=== PATIENT | female | born 1985 | race Caucasian/White ===

== ENCOUNTER 2021-01-18 22:20 | Emergency (ER) | payer OTHER ==
[~2021-01-18] VITALS: Ht 167.6 cm; Wt 79.5 kg
--- NOTE | 2021-01-18 22:38 | PHYS DOC ---
Past History Past Medical History: Anemia General Adult HPI: HPI: "..I ve been vomiting.. .. I think I just need some fluids and nausea meds.. " Patient is a 35 year old female who presents with above hx and complaints nausea, vomiting and 36 weeks . Pt. Gavid 4, Term 2, 1 Miscarry. Pt. has been taking vitamins. No recent travel. No history of trauma. No history of immunosuppression. No history of bad food intake. 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 No history of vaginal discharge or bleeding. Her primary care doctor for this is Amber Wilkinson. Review of Systems: Review of Systems: Constitutional: Denies fever or chills Eyes: Denies change in visual acuity HENT: Denies nasal congestion or sore throat Respiratory: Denies cough or shortness of breath Cardiovascular: Denies chest pain or edema GI: Complaints, nausea, vomiting,. Denies bloody stools or diarrhea : Denies dysuria Musculoskeletal: Denies back pain or joint pain Integument: Denies rash Neurologic: Denies headache, focal weakness or sensory changes Endocrine: Denies polyuria or polydipsia Lymphatic: Denies swollen glands Psychiatric: Denies depression or anxiety Family History: Family History: Noncontributory to presentation Current Medications: Current Meds: See nursing for home meds Allergies: Allergies: No known drug allergies Physical Exam: PE: Constitutional: Well developed, well nourished, moderate acute distress, non- toxic appearance. [] HENT: Normocephalic, atraumatic, bilateral external ears normal, oropharynx dry, no oral exudates, nose normal. [] Eyes: PERRLA, EOMI, conjunctiva normal, no discharge. [] Neck: Normal range of motion, no tenderness, supple, no stridor. [] Cardiovascular:Heart rate regular rhythm, no murmur []. The monitor shows a sinus rhythm Lungs & Thorax: Bilateral breath sounds equal apex on auscultation [] Abdomen: Bowel sounds decreased,, soft, no tenderness, no masses, no pulsatile masses. Gravid. heart rate 150s to 160s. Active movement. Pt. declines pelvic at this time. No vaginal bleeding or discharge reported) Skin: Warm, dry, no erythema, no rash. [] Back: No tenderness, no CVA tenderness. [] Extremities: No tenderness, no cyanosis, no clubbing, ROM intact, no edema. No cording appreciated Neurologic: Alert and oriented X 3, normal motor function, normal sensory function, no focal deficits noted. DTRs +2 Psychologic: Affect anxious , judgement normal, mood normal. [] EKG: EKG: [] Radiology/Procedures: Radiology/Procedures: [] Heart Score: C/O Chest Pain: N/A Risk Factors: Risk Factors: DM, Current or recent (<one month) smoker, HTN, HLP, family history of CAD, obesity. Risk Scores: Score 0 - 3: 2.5% MACE over next 6 weeks - Discharge Home Score 4 - 6: 20.3% MACE over next 6 weeks - Admit for Clinical Observation Score 7 - 10: 72.7% MACE over next 6 weeks - Early Invasive Strategies Course & Med Decision Making: Course & Med Decision Making Pertinent Labs and Imaging studies reviewed. (See chart for details) Patient push clear fluids. Patient may take 4 mg to 8 mg up to 4 times a day for active vomiting. Follow-up primary care. Recommend patient follow-up at [facility] this where she plans to deliver for continuity of care this close to completion of this . Return if any concerns. Push fruit juices. Impression: 1. Hyperemesis gravidarum 2. Anemia hemoglobin 11.4 3. Mild hypokalemia 3.4 4. Maternal blood type is B positive 5. Dehydration 6. BHCG= 36,831 7. Gravid 36 weeks 8. G4, Miscarry 1, Term 2 9. Hematuria [] Dragon Disclaimer: Dragelisa Disclaimer: This electronic medical record was generated, in whole or in part, using a voice recognition dictation system. Departure Departure: Referrals: PCP,NO (PCP) Scripts Ondansetron Hcl (ZOFRAN) 4 Mg Tablet 8 MG PO QIDPRN PRN for NAUSEA/VOMITING, #30 TAB Prov: RANJAN RICHARDS MD 01/19/21 Gilberto Disclaimer This chart was dictated in whole or in part using Voice Recognition software in a busy, high-work load, and often noisy Emergency Department environment. It may contain unintended and wholly unrecognized errors or omissions. RANJAN RICHARDS MD January 18, 2021 22:38
[2021-01-18] MEDS ORDERED: IV RINGERS SOLUTION,LACTATED 1,000 ML IV SCH (22:45)
[2021-01-18] MEDS ORDERED: ONDANSETRON PF 4 MG/2 ML VIAL. IVP ONE (22:45)
[2021-01-18] MEDS ORDERED: FAMOTIDINE 20 MG/2 ML VIAL IVP ONE (22:45)
[2021-01-19 00:18] LABS: BASO % 0 % (0-3); EOS % 0 % (0-3); HEMATOCRIT 34.2 % (36.0-47.0); HEMOGLOBIN 11.4 g/dL (12.0-15.5); LYMPH # 1.3 x10^3/uL (1.0-4.8); LYMPH % 11 % (24-48); MEAN CORPUSCULAR HEMOGLOBIN 31 pg (25-35); MEAN CORPUSCULAR HGB CONC 33 g/dL (31-37); MEAN CORPUSCULAR VOLUME 93 fL (79-100); MONO # 0.4 x10^3/uL (0.0-1.1); MONO % 4 % (0-9); NEUT # 10.3 x10^3uL (1.8-7.7); NEUT % 85 % (31-73); PLATELET COUNT 167 x10^3/uL (140-400); RED BLOOD COUNT 3.68 x10^6/uL (3.50-5.40); RED CELL DISTRIBUTION WIDTH 12.7 % (11.5-14.5); WHITE BLOOD COUNT 12.1 x10^3/uL (4.0-11.0)
[2021-01-19 00:25] LABS: CALCIUM 8.1 mg/dL (8.5-10.1); CREATININE 0.8 mg/dL (0.6-1.0); GFR 81.2; POTASSIUM 3.4 mmol/L (3.5-5.1)
[2021-01-19 00:31] LABS: ALBUMIN 3.1 g/dL (3.4-5.0); DIRECT BILIRUBIN 0.1 mg/dL (0.0-0.2); TOTAL BILIRUBIN 0.6 mg/dL (0.2-1.0); TOTAL PROTEIN 6.9 g/dL (6.4-8.2)
[2021-01-19 00:39] VITALS: BP 112/54
[2021-01-19 00:53] LABS: BILIRUBIN,URINE NEG (NEG); CLARITY,URINE HAZY; COLOR,URINE YELLOW; GLUCOSE,URINE NEG (NEG); NITRITE,URINE NEG (NEG); UROBILINOGEN,URINE 0.2 mg/dL (0.2 mg/dL)
[2021-01-19 00:55] LABS: BARBITURATES NEG (NEG); BENZODIAZEPINES NEG (NEG); CANNABINOIDS NEG (NEG); COCAINE NEG (NEG); METHADONE NEG (NEG); OPIATES NEG (NEG); PHENCYCLIDINE NEG (NEG)
[2021-01-19 00:58] LABS: AMPHETAMINE/METHAMPHETAMINE NEG (NEG)
[2021-01-19 01:00] LABS: BACTERIA,URINE FEW /HPF (0-FEW); RBC,URINE >40 /HPF (0-2); SQUAMOUS EPITHELIAL CELL,UR FEW /LPF; WBC,URINE OCC /HPF (0-4)
[2021-01-19] MEDS ORDERED: ONDA4TAB7 PO (01:28)
[2021-01-19] MEDS ORDERED: ONDANSETRON ODT 4 MG TAB.RAPDIS PO ONE (01:30)
== END 2021-01-19 01:34 | disposition home or self-care (01) ==
LOC: ER 22:20
DX: O21.0 Mild hyperemesis gravidarum (principal); O99.013 Anemia complicating pregnancy, third trimester; E87.6 Hypokalemia; E86.0 Dehydration; R31.9 Hematuria, unspecified; Z3A.36 36 weeks gestation of pregnancy
CPT/HCPCS: 36415; 80048; 80076; 80307; 81001; 82150; 82550; 83690; 84702; 85025; 86900; 86901; 96361; 96374; 96375; 99284; J2405; J3490; J7120; Q0162